=== PATIENT | female | born 1985 | race Caucasian/White ===

== ENCOUNTER 2017-02-23 13:54 | Outpatient (CLI) | payer MEDICAID ==
[~2017-02-23] VITALS: Ht 149.9 cm; Wt 73.5 kg
[~2017-02-23 13:54] MED LIST: BENZ1LOZ52 MM; SODI126M NASAL
[2017-02-23 14:08] VITALS: Ht 149.9 cm; Wt 73.5 kg
[2017-02-23 14:09] VITALS: BP 104/63; PULSE 82; RESP 20
[2017-02-23] MEDS ORDERED: FERR325C PO (14:12)
[2017-02-23] MEDS ORDERED: PRENAT PO (14:12)
--- NOTE | 2017-02-23 14:23 | RADRPT ---
PROCEDURE: US OB biophysical profile. CLINICAL INDICATION: Contractions TECHNIQUE: Multiple sonographic images of the pelvis were obtained. The images were reviewed on a PACS workstation. COMPARISON: No prior studies are available for comparison. FINDINGS: There is a single viable intrauterine gestation. Cardiac activity is present with 131 beats per min jeanette. There is a vertex presentation. The placenta is posterior. There is no evidence of placental abruption. There is a normal amount of amniotic fluid with an ANGELICA = 11.5 cm. Biophysical profile: movement 2/2 tone 2/2. breathing 2/2 ANGELICA 2/2 Total 04/26 RPTAT: AA . IMPRESSION: Normal biophysical profile. Physician Mariluz Date Time Electronically viewed and signed by Physician Mariluz on 02/23/2017 14:22 /
[2017-02-23 14:50] LABS: ADD UMIC YES; URINE BILIRUBIN (Dip) NEGATIVE (NEGATIVE); URINE BLOOD (Dip) NEGATIVE (NEGATIVE); URINE COLOR LT. YELLOW (YELLOW); URINE GLUCOSE (Dip) NEGATIVE (NEGATIVE); URINE KETONES (Dip) NEGATIVE (NEGATIVE); URINE LEUKOCYTE ESTERASE (Dip) 1+ (NEGATIVE); URINE NITRITE (Dip) NEGATIVE (NEGATIVE); URINE TOTAL PROTEIN (Dip) NEGATIVE (NEGATIVE); URINE UROBILINOGEN (Dip) 1.0 E.U./dL (0.1-1.0)
[2017-02-23 15:09] LABS: SQUAMOUS EPITHELIAL CELL,UR FEW; URINE RBCS NONE SEEN /HPF (0)
[2017-02-23] MEDS ORDERED: LACTATED RINGER'S 1,000 ML IV SCH (16:05)
[2017-02-23] MEDS ORDERED: TERBUTALINE 1 MG/ML INJ SC PRN (16:30)
[2017-02-23 16:58] LABS: ADD SCAN DIFF NO
[2017-02-23 16:59] LABS: BASOPHILS % 0.2 % (0.0-2.0); EOSINOPHILS # 0.1 10^3/ul (0.0-0.5); EOSINOPHILS % 1.1 % (0.0-7.0); HEMATOCRIT 33.8 % (37.0-47.0); HEMOGLOBIN 11.1 g/dl (12.0-16.0); LYMPHOCYTES % 16.4 % (15.0-51.0); MEAN CORPUSCULAR HEMOGLOBIN 29.4 pg (29.0-33.0); MEAN CORPUSCULAR HGB CONC 32.8 g/dl (32.0-37.0); MEAN CORPUSCULAR VOLUME 89.4 fl (82.0-101.0); MEAN PLATELET VOLUME 9.3 fl (7.4-10.4); MONOCYTE # 0.6 10^3/ul (0.3-0.9); MONOCYTES % 4.6 % (0.0-11.0); NEUTROPHIL # 9.4 10^3/ul (1.6-7.5); NEUTROPHILS % 76.9 % (39.0-77.0); PLATELET COUNT 300 10^3/UL (140-415); RED BLOOD COUNT 3.78 10^6/ul (4.20-5.40); RED CELL DISTRIBUTION WIDTH 14.2 % (11.5-14.5); WHITE BLOOD COUNT 12.2 10^3/ul (4.8-10.8)
--- NOTE | 2017-02-23 18:30 | QN ---
Documentation Comment 31 y/o female hat 34 weeks c/o uc started today on EFM UC seen q 3-4 min Cx: closed after IV hydration and SQ terbutaline UCs subsided Will D/C on bed + pelvic rest ANGEL GONZALEZ MD Feb 23, 2017 18:30
[2017-02-23] MEDS ORDERED: BETAMET NA PHOS/AC(6 MG/ML) 5ML INJ IM ONE (19:00)
--- NOTE | 2017-02-24 21:15 | QN ---
Documentation Comment 31 y. at 35w6d here for 2nd dose of bethamethasone ,she was here for PTL with uc q3-4min apart yseterday.which was resolved after IV hydration and terbutaline inj' and ist dose of betemethasone given on 02/23/17 EFM revealed 2-3/hr insignificant uc with mod accelerations advise to be f/u in her OB on tuesday02/28/17 for care d/s home with routine labor instructions RTH prn LUISA RIGGINS MD Feb 24, 2017 21:15
== END 2017-02-23 18:50 | disposition home or self-care (01) ==
LOC: OBT 13:54 → L-D 13:54 → OBT 18:50
PROVIDERS: ATTEND Obstetrics & Gynecology
DX: O60.03 Preterm labor without delivery, third trimester (principal); O62.9 Abnormality of forces of labor, unspecified; Z3A.35 35 weeks gestation of pregnancy
CPT/HCPCS: 36415; 76818; 81001; 85025; 96360; 96361; 96372; J0702; J3105; J7120; Z7500; G0463

== ENCOUNTER 2017-02-24 18:38 | Outpatient (CLI) | payer MEDICAID ==
[~2017-02-24] VITALS: Ht 149.9 cm; Wt 75.2 kg
[~2017-02-24 18:38] MED LIST changes: -BENZ1LOZ52 MM; +FERR325C PO; +PRENAT PO; -SODI126M NASAL
[2017-02-24 19:02] VITALS: BP 114/64; PULSE 90; Ht 149.9 cm; Wt 75.2 kg
[2017-02-24] MEDS ORDERED: BETAMET NA PHOS/AC(6 MG/ML) 5ML INJ IM ONE (19:30)
--- NOTE | 2017-02-24 23:41 | TRIAGE ---
OB Triage Datetime Report Generated by CPN: 02/24/2017 23:41 Datetime: 02/24/2017 20:38 Stage of : OB Triage Labor Evaluation Frequency: 0 Monitor Mode: External Resting Tone [place]: Relaxed Heart Rate FHR Baseline Rate: 120 Monitor Mode: External US FHR Baseline Changes: No Baseline Change Variability: Moderate 6-25 bpm Accelerations: 15X15 Decelerations: None Category: Category I Datetime: 02/24/2017 20:00 Stage of : OB Triage Labor Evaluation Frequency: X3 Monitor Mode: External Duration (sec)2399: 50-110 Quality: Mild Resting Tone [place]: Relaxed Heart Rate FHR Baseline Rate: 120 Monitor Mode: External US FHR Baseline Changes: No Baseline Change Variability: Moderate 6-25 bpm Accelerations: 15X15 Decelerations: None Category: Category I Datetime: 02/24/2017 18:58 Stage of : OB Triage Assessment Type: Triage Maternal Assessment Level of Consciousness: Fully Conscious DTR's/Clonus: DTRs 2+; No Clonus Headache: Denies Blurred Vision: No Respiratory Effort: Unlabored; Regular Rhythm; Equal Expansion Breath Sounds, Left: Clear and Equal Breath Sounds, Right: Clear and Equal Nausea/Vomiting: Denies RUQ Epigastric Pain: Denies Facial Edema: None Temperature Route: Axillary Fall Risk Assessment History of Falling: (0) No Secondary Diagnosis: (0) No Ambulatory Aid: (0) Bedrest/Nurse Assist IV Therapy: (0) No Gait: (0) Normal/Bedrest/Immobile Mental Status: (0) Oriented to Own Ability Fall Score: 0 Fall Risk Score Definition: No Risk: No action required Labor Evaluation Frequency: X1 Monitor Mode: External Duration (sec)2399: 70 Quality: Mild Resting Tone [place]: Relaxed Heart Rate FHR Baseline Rate: 125 Monitor Mode: External US Variability: Moderate 6-25 bpm Accelerations: 10X10 Decelerations: None Category: Category I Pain Assessment Pain Scale: 7 Pain Presence: Intermittent Pain Type: Pressure; Ache Pain Location: Back Pain Goal: 3 Pain Relief Measures: Comfort Measures Datetime: 02/24/2017 18:57 Time of Arrival: 02/17/2017 18:35 EGA: 34.6 Arrived By: Ambulatory Arrived From: Home Chief Complaint: 2ND BETAMETASONE INJECTION, STATES SCANT BROWN DISCHARGE. DENIES LEAKING OF FLUID , STATES POSS UC'S Movement: Present Contractions: Occasional Rupture of Membranes: Denies Vaginal Bleeding: Scant Vaginal Discharge: Present Recent Sexual Intercouse: Denies Abdominal Trauma: Not Applicable Patient Complaints: Back Pain Time Provider Notified: 02/24/2017 20:15 Initial Plan: VS, NST, BETAMETHASONE #2 Datetime: 02/23/2017 18:42 Labor Evaluation Frequency: X3 IN THE LAST HOUR Monitor Mode: External Quality: Moderate Pattern: Normal: <= 5 Contractions in 10 Minutes Resting Tone [place]: Relaxed Datetime: 02/23/2017 17:30 Labor Evaluation Frequency: 0 Monitor Mode: External Duration (sec)2399: 0 Pattern: Normal: <= 5 Contractions in 10 Minutes Resting Tone [place]: Relaxed Contraction Comments: PT DENIES UC'S Pain Assessment Pain Scale: 3 Pain Presence: Intermittent Pain Type: Cramping Pain Location: Abdomen; Back Pain Goal: 2 Pain Assessment Comments: PT REPORTS DECREASED PAIN Datetime: 02/23/2017 16:53 Comments: LOSS OF CONTACT Datetime: 02/23/2017 16:49 Comments: LOSS OF CONTACT NOTED AT THIS TIME Datetime: 02/23/2017 16:42 Labor Evaluation Frequency: IRREG Monitor Mode: External Duration (sec)2399: 50-80 Quality: Moderate Pattern: Normal: <= 5 Contractions in 10 Minutes Resting Tone [place]: Relaxed Heart Rate FHR Baseline Rate: 145 Monitor Mode: External US Variability: Moderate 6-25 bpm Accelerations: 15X15 Decelerations: None Category: Category I Datetime: 02/23/2017 15:24 Labor Evaluation Frequency: 3-5 Monitor Mode: External Duration (sec)2399: 50-80 Quality: Moderate Pattern: Normal: <= 5 Contractions in 10 Minutes Resting Tone [place]: Relaxed Heart Rate FHR Baseline Rate: 145 Monitor Mode: External US Variability: Moderate 6-25 bpm Accelerations: 15X15 Decelerations: None Category: Category I Datetime: 02/23/2017 14:56 Labor Evaluation Frequency: IRREG Monitor Mode: External Duration (sec)2399: 50-80 Quality: Strong Pattern: Normal: <= 5 Contractions in 10 Minutes Resting Tone [place]: Relaxed Heart Rate FHR Baseline Rate: 135 Monitor Mode: External US Variability: Moderate 6-25 bpm Accelerations: 15X15 Decelerations: None Category: Category I Datetime: 02/23/2017 14:00 EGA: 35.5 Datetime: 02/23/2017 13:50 Time of Arrival: 02/23/2017 13:50 Arrived By: Ambulatory Chief Complaint: BACK PAIN/ ABDOMINAL PAIN (Annotations: Data stored by CPN on behalf of user) Movement: Present Contractions: Irregular Rupture of Membranes: Denies Vaginal Bleeding: None Vaginal Discharge: Denies Recent Sexual Intercouse: Denies Abdominal Trauma: Not Applicable Patient Complaints: Contractions; Cramping; Headache; Dizziness Time Provider Notified: 02/23/2017 16:00 Provider Notified: XI Initial Plan: TERB, SVE, BPP, IV HYDRATIONS (Annotations: Data stored by N on behalf of user)
== END 2017-02-24 20:49 | disposition home or self-care (01) ==
LOC: OBT 18:38 → L-D 18:39 → OBT 20:49
PROVIDERS: ATTEND Obstetrics & Gynecology
DX: O26.893 Other specified pregnancy related conditions, third trimester (principal); M54.9 Dorsalgia, unspecified; R10.9 Unspecified abdominal pain; Z3A.34 34 weeks gestation of pregnancy
CPT/HCPCS: 96372; J0702; Z7500; G0463

== ENCOUNTER 2017-02-28 14:30 | Outpatient (CLI) | payer MEDICAID ==
[~2017-02-28] VITALS: Ht 149.9 cm; Wt 74.5 kg
--- NOTE | 2017-02-28 14:58 | RADRPT ---
PROCEDURE: Obstetrical ultrasound CLINICAL INDICATION: CONTRACTION TECHNIQUE: Multiple sonographic images of the pelvis were obtained. The images were reviewed on a PACS workstation. COMPARISON: None FINDINGS: The cervix is not well visualized. There is a single viable intrauterine gestation. Cardiac activity is present with 139 beats per minute. There is a vertex presentation. The placenta is fundal. There is no evidence for an abruption or placenta previa. There is a subjectively normal amount of amniotic fluid. Measurements were made in order to determine age. The results are as follows (cm): BPD =8.61 HC =30.25 AC =31.42 FL =6.70 Estimated gestational age by ultrasound of approximately 34 weeks, 4 days. The estimated date of delivery by ultrasound is 04/07/2017. Estimated gestational age by LMP of approximately 35 weeks, 0 days. The estimated date of delivery by LMP is 04/04/2017. EFW = 2534 grams (42nd percentile) IMPRESSION: Single viable intrauterine gestation of approximately 34 weeks, 4 days . The estimated date of delivery is 04/07/2017 . Dating by ultrasound is within 3 days of dating by LMP. Cephalic presentation. Estimated weight is in the 42nd percentile. RPTAT: EE Physician Mariluz Date Time Electronically viewed and signed by Physician Mariluz on 02/28/2017 14:58 /
--- NOTE | 2017-02-28 14:59 | RADRPT ---
PROCEDURE: US OB biophysical profile. CLINICAL INDICATION: evaluation TECHNIQUE: Multiple sonographic images of the pelvis were obtained. The images were reviewed on a PACS workstation. COMPARISON: No prior studies are available for comparison. FINDINGS: There is a single viable intrauterine gestation. Cardiac activity is present with 161 beats per min jeanette. There is a vertex presentation. The placenta is fundal. There is no evidence of placental abruption. There is a normal amount of amniotic fluid with an ANGELICA of 12.0 cm. Biophysical profile: movement 2/2 tone 2/2. breathing 2/2 ANGELICA 2/2 Total 04/26 RPTAT: AA . IMPRESSION: Normal biophysical profile. Physician Mariluz Date Time Electronically viewed and signed by Physician Mariluz on 02/28/2017 14:58 /
[2017-02-28 15:07] VITALS: BP 94/65; PULSE 91; RESP 20; Ht 149.9 cm; Wt 74.5 kg
[2017-02-28 16:50] LABS: ADD UMIC YES; URINE BILIRUBIN (Dip) NEGATIVE (NEGATIVE); URINE BLOOD (Dip) NEGATIVE (NEGATIVE); URINE COLOR LT. YELLOW (YELLOW); URINE GLUCOSE (Dip) NEGATIVE (NEGATIVE); URINE KETONES (Dip) NEGATIVE (NEGATIVE); URINE LEUKOCYTE ESTERASE (Dip) TRACE (NEGATIVE); URINE NITRITE (Dip) NEGATIVE (NEGATIVE); URINE TOTAL PROTEIN (Dip) NEGATIVE (NEGATIVE); URINE UROBILINOGEN (Dip) 0.2 E.U./dL (0.1-1.0)
--- NOTE | 2017-02-28 16:50 | QN ---
Documentation Comment 31 y/o female here for C/O passing "gush" of water this AM On U/S: ANGELICA 12 and BPP 04/26 Cx: closed FHTs: R If Rom Plus: negative will Follow in 2 days ANGEL GONZALEZ MD Feb 28, 2017 16:50
[2017-02-28 16:57] LABS: URINE RBCS 0-2 /HPF (0)
--- NOTE | 2017-02-28 18:36 | TRIAGE ---
OB Triage Datetime Report Generated by CPN: 02/28/2017 18:35 Datetime: 02/28/2017 17:25 Time of Arrival: 02/28/2017 14:20 EGA: 35.0 Arrived By: Ambulatory Arrived From: Home Chief Complaint: LEAKING Movement: Present Contractions: Irregular Vaginal Bleeding: None Vaginal Discharge: Denies Recent Sexual Intercouse: Denies Patient Complaints: Cramping; Back Pain Time Provider Notified: 02/28/2017 15:00 Provider Notified: XI Initial Plan: SVE, BPP, ANGELICA , EFW,UA Datetime: 02/24/2017 18:58 Fall Risk Assessment Fall Score: 0 Fall Risk Score Definition: No Risk: No action required Datetime: 02/24/2017 18:57 EGA: 33.3 Provider Notified: XI Datetime: 02/23/2017 14:00 EGA: 34.2
== END 2017-02-28 17:30 | disposition home or self-care (01) ==
LOC: OBT 14:30 → L-D 14:30 → OBT 17:30
PROVIDERS: ATTEND Obstetrics & Gynecology
DX: O26.893 Other specified pregnancy related conditions, third trimester (principal); Z3A.31 31 weeks gestation of pregnancy
CPT/HCPCS: 76815; 76818; 81001; 84112; Z7500; G0463

== ENCOUNTER 2017-03-09 11:37 | Outpatient (CLI) | payer MEDICAID ==
[~2017-03-09] VITALS: Ht 149.9 cm; Wt 73.8 kg
[2017-03-09 12:29] VITALS: Ht 149.9 cm; Wt 73.8 kg
[2017-03-09 12:30] VITALS: BP 103/60; PULSE 75
[2017-03-09 12:53] LABS: ADD SCAN DIFF NO
[2017-03-09 12:55] LABS: BASOPHILS % 0.3 % (0.0-2.0); EOSINOPHILS # 0.1 10^3/ul (0.0-0.5); EOSINOPHILS % 0.8 % (0.0-7.0); HEMATOCRIT 32.2 % (37.0-47.0); LYMPHOCYTES # 1.5 10^3/ul (0.8-2.9); LYMPHOCYTES % 12.8 % (15.0-51.0); MEAN CORPUSCULAR HEMOGLOBIN 29.9 pg (29.0-33.0); MEAN CORPUSCULAR HGB CONC 34.2 g/dl (32.0-37.0); MEAN CORPUSCULAR VOLUME 87.5 fl (82.0-101.0); MONOCYTE # 0.6 10^3/ul (0.3-0.9); MONOCYTES % 5.1 % (0.0-11.0); NEUTROPHIL # 9.5 10^3/ul (1.6-7.5); NEUTROPHILS % 80.1 % (39.0-77.0); PLATELET COUNT 292 10^3/UL (140-415); RED BLOOD COUNT 3.68 10^6/ul (4.20-5.40); RED CELL DISTRIBUTION WIDTH 14.1 % (11.5-14.5); WHITE BLOOD COUNT 11.9 10^3/ul (4.8-10.8)
[2017-03-09 12:58] LABS: ADD UMIC YES; UR ASCORBIC ACID 20 mg/dL (NEGATIVE); UR BILIRUBIN (Dip) NEGATIVE (NEGATIVE); UR BLOOD (Dip) NEGATIVE (NEGATIVE); UR CLARITY SLIGHTLY CLOUDY (CLEAR); UR COLOR YELLOW (YELLOW); UR GLUCOSE (Dip) NEGATIVE (NEGATIVE); UR KETONES (Dip) NEGATIVE (NEGATIVE); UR LEUKOCYTE ESTERASE (Dip) 2+ Leu/ul (NEGATIVE); UR MUCUS FEW /HPF (NONE SEEN); UR NITRITE (Dip) NEGATIVE (NEGATIVE); UR RBC 1 /HPF (0-5); UR SPECIFIC GRAVITY (Dip) 1.014 (1.003-1.030); UR SQUAMOUS EPITHELIAL CELL FEW /HPF (FEW); UR TOTAL PROTEIN (Dip) NEGATIVE (NEGATIVE); UR UROBILINOGEN (Dip) NEGATIVE (NEGATIVE)
--- NOTE | 2017-03-09 13:16 | RADRPT ---
PROCEDURE: Limited OB ultrasound for ANGELICA. CLINICAL INDICATION: Spontaneous rupture of membranes. TECHNIQUE: Sonographic evaluation to assess the amniotic fluid volume was performed. Transabdomin al imaging of the gravid uterus was performed. COMPARISON: OB ultrasound 02/28/2017 FINDINGS: Single live intrauterine with cardiac activity is identified. The heart rate i s 128 bpm. The amniotic -fluid volume equals approximately 10.2 cm, within normal limits. The plac enta is posterior. The lie is cephalic. IMPRESSION: 1. Amniotic fluid volume equals 10.2 cm. RPTAT: KK .Bobby Rich MD, MD Date Time Electronically viewed and signed by .Bobby Rich MD, on 03/09/2017 13:16 .B/
--- NOTE | 2017-03-09 13:55 | PN ---
Triage Information Date/Time 03/09/2017 Weeks of Gestation 36.2 weeks : 3 Para: 2 Diabetes: none Hypertention: none Additional information sent in from clinic for ? SROM and or labor Objective Vital Signs Date Time Temp Pulse Resp B/P Pulse Ox O2 Delivery O2 Flow Rate FiO2 03/09/17 12:30 98.3 75 103/60 Heart Rate: 140's Heart Rate Comments FHTs are reactive Contractions: 6-10 Minutes Apart Exam Cx: closed Results/Medications Result Diagram: 03/09/17 1245 Results 24 hrs Laboratory Tests Test 03/09/17 11:24 03/09/17 12:45 Urine Color YELLOW Urine Clarity SLIGHTLY CLOUDY A Urine pH 6.0 Urine Specific [place] 1.014 Urine Ketones NEGATIVE Urine Nitrite NEGATIVE Urine Bilirubin NEGATIVE Urine Urobilinogen NEGATIVE Urine Leukocyte Esterase 2+ H Urine Microscopic RBC 1 Urine Microscopic WBC 7 H Urine Squamous Epithelial Cells FEW Urine Mucus FEW A Urine Hemoglobin NEGATIVE Urine Glucose NEGATIVE Urine Total Protein NEGATIVE White Blood Count 11.9 H Red Blood Count 3.68 L Hemoglobin 11.0 L Hematocrit 32.2 L Mean Corpuscular Volume 87.5 Mean Corpuscular Hemoglobin 29.9 Mean Corpuscular Hemoglobin Concent 34.2 Red Cell Distribution Width 14.1 Platelet Count 292 Mean Platelet Volume 9.0 Neutrophils % 80.1 H Lymphocytes % 12.8 L Monocytes % 5.1 Eosinophils % 0.8 Basophils % 0.3 Nucleated Red Blood Cells % 0.0 Neutrophils # 9.5 H Lymphocytes # 1.5 Monocytes # 0.6 Eosinophils # 0.1 Basophils # 0.0 Nucleated Red Blood Cells # 0.0 Membranes Rupture NEGATIVE Imaging Results ANGELICA:>10 cm Assessment/Plan labor: SQ terbutaline given SROM ruled out: (NEG ROM PLUS) will place patient on bed + pelvic rest Follow as out patient ANGEL GONZALEZ MD Mar 09, 2017 13:55
[2017-03-09] MEDS ORDERED: TERBUTALINE 1 MG/ML INJ SC ONE (14:00)
== END 2017-03-09 14:30 | disposition home or self-care (01) ==
LOC: OBT 11:37 → L-D 11:38 → OBT 14:22
PROVIDERS: ATTEND Obstetrics & Gynecology
DX: O47.03 False labor before 37 completed weeks of gestation, third trimester (principal); Z3A.36 36 weeks gestation of pregnancy
CPT/HCPCS: 36415; 76815; 81001; 84112; 85025; J3105; Z7500; G0463

== ENCOUNTER 2017-03-20 15:25 | Outpatient (CLI) | payer MEDICAID ==
[~2017-03-20] VITALS: Ht 149.9 cm; Wt 75.4 kg
[2017-03-20 15:40] VITALS: BP 107/57; PULSE 71; RESP 18; Ht 149.9 cm; Wt 75.4 kg
--- NOTE | 2017-03-20 18:14 | PN ---
Triage Information Date/Time 03/20/2017 Weeks of Gestation 37.6 : 3 Para: 2 Diabetes: none Hypertention: none Additional information C/P UC started 10:00 AM Objective Vital Signs Date Time Temp Pulse Resp B/P Pulse Ox O2 Delivery O2 Flow Rate FiO2 03/20/17 15:40 98.1 71 18 107/57 98 Room Air Contractions: 6-10 Minutes Apart Exam long posterior and closed Results/Medications Medications NONE Imaging Results BPP 04/26 Assessment/Plan 37.6 weeks gestation early labor ANGEL GONZALEZ MD Mar 20, 2017 18:14
--- NOTE | 2017-03-20 19:48 | RADRPT ---
PROCEDURE: OB ultrasound for biophysical profile CLINICAL INDICATION: . labor TECHNIQUE: Multiple sonographic images of the pelvis were obtained. Transabdominal view of the gr avid uterus are available for review. The images were reviewed on a PACS workstation. COMPARISON: 03/09/2017 FINDINGS: breathing movement = 2/2 tone = 2/2 motion = 2/2 ANGELICA = 2/2 ANGELICA = 8.4 cm Single live intrauterine with cardiac activity. Heart rate equals 129 bpm. IMPRESSION: 1. Single viable intrauterine gestation. 2. Biophysical profile = 8/8. 3. ANGELICA = 8.4 cm. RPTAT: HLDM .Alex Lovelace MD, MD Date Time Electronically viewed and signed by .Alex Lovelace MD, on 03/20/2017 19:48 .M/
== END 2017-03-20 20:04 | disposition home or self-care (01) ==
LOC: OBT 15:25 → L-D 15:26 → OBT 20:04
PROVIDERS: ATTEND Obstetrics & Gynecology
DX: O62.9 Abnormality of forces of labor, unspecified (principal); Z3A.37 37 weeks gestation of pregnancy
CPT/HCPCS: 76818; Z7500; G0463

== ENCOUNTER 2017-03-26 21:41 | Outpatient (CLI) | payer MEDICAID ==
[~2017-03-26] VITALS: Ht 149.9 cm; Wt 75.2 kg
[2017-03-26 22:23] VITALS: Ht 149.9 cm; Wt 75.2 kg
[2017-03-26 22:24] VITALS: BP 111/63; PULSE 75; RESP 18
--- NOTE | 2017-03-27 01:39 | PN ---
Triage Information Date/Time March 27, 2017 Weeks of Gestation 38w 6d : 3 Para: 2 Diabetes: none Hypertention: none Additional information C/O contractions. No bleeding or leaking. POBHx: x 2, 4 and 6 years ago. PMHx: none. PSHx: Cholecystectomy. NKDA. Objective Vital Signs Date Time Temp Pulse Resp B/P Pulse Ox O2 Delivery O2 Flow Rate FiO2 03/26/17 22:24 98.2 75 18 111/63 Room Air Heart Rate: 120's Heart Rate Comments Accels to the 170's. No decels. UC's q 2 to 7 minutes. Contractions: 6-10 Minutes Apart Exam 40%/FT/-3 After walking x 2 hours, her exam was 1-2 cm only.No other changes. Assessment/Plan IUP at 38w 6d. Prodromal labor. P: Gave pt the option of staying or going home and she opted for home. Labor precautions given. MIA MARIO MD Mar 27, 2017 01:39
== END 2017-03-27 01:41 | disposition home or self-care (01) ==
LOC: OBT 21:41 → L-D 21:42 → OBT 03-27 01:41
PROVIDERS: ATTEND Obstetrics & Gynecology
DX: O62.9 Abnormality of forces of labor, unspecified (principal); Z3A.38 38 weeks gestation of pregnancy
CPT/HCPCS: G0463

== ENCOUNTER 2017-04-01 08:00 | Inpatient (IN) | payer MEDICAID ==
[~2017-04-01] VITALS: Ht 149.9 cm; Wt 75.9 kg
[2017-04-01 08:41] VITALS: Ht 149.9 cm; Wt 75.9 kg
[2017-04-01 08:42] VITALS: BP 105/71; PULSE 85; RESP 16
[2017-04-01] MEDS: LACTATED RINGER'S 1,000 ML IV SCH ×2 (08:44→16:17)
[2017-04-01] MEDS ORDERED: OXYTOCIN 30 UNITS/LR 500 ML IV SCH ×3 (09:00)
[2017-04-01] MEDS ORDERED: OXYTOCIN 30 UNITS/LR 500 ML IV PRN (09:00)
[2017-04-01] MEDS ORDERED: BUTORPHANOL 2 MG INJ IV PRN (09:00)
[2017-04-01] MEDS ORDERED: METHYLERGONOVINE 0.2 MG INJ IM PRN (09:00)
[2017-04-01] MEDS ORDERED: CARBOPROST 250 MCG INJ IM PRN (09:00)
[2017-04-01] MEDS ORDERED: IBUPROFEN 600 MG TAB PO PRN (09:00)
[2017-04-01] MEDS ORDERED: LIDOCAINE 1% (MPF) 30 ML INJ INJ PRN (09:00)
[2017-04-01] MEDS ORDERED: MISOPROSTOL 200 MCG TAB PR PRN (09:00)
[2017-04-01] MEDS ORDERED: MINERAL OIL LIGHT 10 ML VIAL TOP ONE (09:00)
[2017-04-01 10:58] LABS: ADD SCAN DIFF NO
[2017-04-01 11:08] LABS: BASOPHILS % 0.4 % (0.0-2.0); EOSINOPHILS # 0.1 10^3/ul (0.0-0.5); HEMATOCRIT 35.7 % (37.0-47.0); LYMPHOCYTES # 1.8 10^3/ul (0.8-2.9); LYMPHOCYTES % 16.6 % (15.0-51.0); MEAN CORPUSCULAR HEMOGLOBIN 29.4 pg (29.0-33.0); MEAN CORPUSCULAR HGB CONC 33.6 g/dl (32.0-37.0); MEAN CORPUSCULAR VOLUME 87.5 fl (82.0-101.0); MEAN PLATELET VOLUME 9.6 fl (7.4-10.4); MONOCYTE # 0.6 10^3/ul (0.3-0.9); MONOCYTES % 6.1 % (0.0-11.0); NEUTROPHIL # 7.9 10^3/ul (1.6-7.5); PLATELET COUNT 336 10^3/UL (140-415); RED BLOOD COUNT 4.08 10^6/ul (4.20-5.40); RED CELL DISTRIBUTION WIDTH 14.3 % (11.5-14.5); WHITE BLOOD COUNT 10.6 10^3/ul (4.8-10.8)
[2017-04-01 12:03] LABS: INR 0.94; PROTIME 12.6 Sec (12.2-14.2)
[2017-04-01 12:04] LABS: PARTIAL THROMBOPLASTIN TIME 30.9 Sec (25.0-35.0)
[2017-04-01] MEDS ORDERED: LACTATED RINGER'S 1,000 ML IV PRN (15:00)
--- NOTE | 2017-04-01 20:38 | HP ---
Date/Time of Note Date/Time of Note DATE: 04/01/17 TIME: 20:35 OB - History Hx of Present Free Text/Dictation Admitted for elective induction of labor at 39+ weeks Last Menstrual Period: Jun 17, 2016 Estimated Due Date: Apr 04, 2017 : 3 Para: 2 Care: Good Care Ultrasounds: Normal mid trimester US Obstetrical Complications: Other Medical Complications: None Past Family/Social History * Past Medical, Surgical, Family and Obstetric Histories reviewed from chart. Blood Type: A+ Rubella: immune RPR/VDRL: Negative GBS Status: Negative HBsAG: Negative OB Admission Exam Vital Signs Vital Signs Vital Signs Date Time Temp Pulse Resp B/P Pulse Ox O2 Delivery O2 Flow Rate FiO2 04/01/17 08:42 98.1 85 16 105/71 Room Air Physical Exam HEENT: WNL Heart: Rhythm Normal Lungs: Clear, Equal Abdomen: WNL Extremities: Normal Reflexes: Normal Cervical Dilatation: Fingertip Effacement: 0% Station: -3 Membranes: Intact Heart Rate: 130's Accelerations: Accelerations Present Decelerations: No Decelerations Varibility: Marked Contractions on Admission: None Last 72 hours Lab Results CBC & BMP 04/01/17 09:00 OB Assessment/Plan Reason for admission: induction of labor Other Assessment: term gestation Induction Method: per Misoprostol Protocol ANGEL GONZALEZ MD Apr 01, 2017 20:37
[2017-04-02] MEDS: LACTATED RINGER'S 1,000 ML IV SCH ×3 (00:16→16:33)
[2017-04-02] MEDS ORDERED: OXYTOCIN 30 UNITS/LR 500 ML IV SCH (05:16)
[2017-04-02] MEDS: LACTATED RINGER'S 1,000 ML IV* SCH ×2 (05:16→13:16)
--- NOTE | 2017-04-02 05:16 | LDN ---
Date/Time of Note Date/Time of Note DATE: 04/02/17 TIME: 05:15 Delivery Summary Weeks of Gestation 40 Placenta Delivered: Spontaneously Meconium: none Episiotomy: No Laceration repair: none Anesthesia type: None Estimated blood loss: 100 Sponge & Needle done & correct: Yes All needle counts correct: Yes Any foreign bodies felt in the: No Problems: Delivery Information Suctioning Nose & mouth suctioned at priscilla: Yes Umbilical Cord Cord presentations: no nuchal cord Cord Blood was obtained: Yes ELISABET CHAVARRIA MD Apr 02, 2017 05:16
[2017-04-02] MEDS ORDERED: BENZOCAINE 20% 56 ML SPRAY TOP PRN (05:30)
[2017-04-02] MEDS ORDERED: METHYLERGONOVINE 0.2 MG INJ IM PRN (05:30)
[2017-04-02] MEDS ORDERED: DIBUCAINE 1% 30 GM OINT PR PRN (05:30)
[2017-04-02] MEDS ORDERED: WITCH HAZEL/GLYCERIN PAD PR PRN (05:30)
[2017-04-02] MEDS ORDERED: LANOLIN 7 GM TUBE TOP PRN (05:30)
[2017-04-02] MEDS ORDERED: ACETAMINOPHEN 325 MG TAB PO PRN (05:30)
[2017-04-02] MEDS ORDERED: CARBOPROST 250 MCG INJ IM PRN (05:30)
[2017-04-02] MEDS ORDERED: MISOPROSTOL 200 MCG TAB PR PRN (05:30)
[2017-04-02] MEDS ORDERED: OXYTOCIN 30 UNITS/LR 500 ML IV PRN (05:30)
[2017-04-02] MEDS: IBUPROFEN 600 MG TAB PO SCH ×4 (08:10→23:51)
[2017-04-02 08:20] VITALS: BP 109/59; PULSE 68; RESP 18
[2017-04-02 08:50] VITALS: BP 120/75; PULSE 80; RESP 18
[2017-04-02] MEDS: SENNA/DOCUSATE NA (8.6MG/50MG) TAB PO SCH ×2 (09:34→20:34)
[2017-04-02 12:00] VITALS: BP 104/63; PULSE 67; RESP 18
[2017-04-02 15:38] VITALS: BP 107/59; PULSE 70; RESP 19
[2017-04-02 19:50] VITALS: BP 109/68; PULSE 66; RESP 18
[2017-04-02 23:50] VITALS: BP 137/73; PULSE 66; RESP 18
[2017-04-03 03:45] VITALS: BP 102/70; PULSE 70; RESP 18
[2017-04-03] MEDS: IBUPROFEN 600 MG TAB PO SCH ×4 (05:39→23:40)
[2017-04-03] MEDS: ACETAMINOPHEN 325 MG TAB PO PRN ×2 (06:37→16:15)
[2017-04-03 08:21] VITALS: BP 92/70; PULSE 59; RESP 18
[2017-04-03 08:28] LABS: ADD SCAN DIFF NO
[2017-04-03 08:43] LABS: BASOPHILS % 0.4 % (0.0-2.0); EOSINOPHILS # 0.1 10^3/ul (0.0-0.5); EOSINOPHILS % 1.3 % (0.0-7.0); HEMATOCRIT 30.3 % (37.0-47.0); LYMPHOCYTES # 1.9 10^3/ul (0.8-2.9); LYMPHOCYTES % 17.9 % (15.0-51.0); MEAN CORPUSCULAR HEMOGLOBIN 29.1 pg (29.0-33.0); MEAN CORPUSCULAR VOLUME 88.1 fl (82.0-101.0); MEAN PLATELET VOLUME 9.7 fl (7.4-10.4); MONOCYTE # 0.8 10^3/ul (0.3-0.9); MONOCYTES % 8.1 % (0.0-11.0); NEUTROPHIL # 7.4 10^3/ul (1.6-7.5); NEUTROPHILS % 71.6 % (39.0-77.0); PLATELET COUNT 277 10^3/UL (140-415); RED BLOOD COUNT 3.44 10^6/ul (4.20-5.40); RED CELL DISTRIBUTION WIDTH 14.6 % (11.5-14.5); WHITE BLOOD COUNT 10.3 10^3/ul (4.8-10.8)
[2017-04-03] MEDS: SENNA/DOCUSATE NA (8.6MG/50MG) TAB PO SCH ×2 (11:10→23:40)
[2017-04-03 16:00] VITALS: BP 106/69; PULSE 66; RESP 16
--- NOTE | 2017-04-03 16:00 | DS ---
Date/Time of Note Date/Time of Note Home next day DATE: 04/03/17 TIME: 15:59 Obstetrical Discharge Record Final Diagnosis Final Diagnosis: Term delivered Other Final Diagnosis Status post vaginal delivery Vaginal Delivery Obstetrical Delivery: Spontaneous Complications Augmentation: Yes Induction: Yes Condition on Discharge Physical Assessment Last Vitals: See nurse's notes Voiding: Yes Bowel Movement: Yes Breast: Soft, non-tender, Filling Fundus: Firm Abdomen and Incision: Abdomen is soft bowel sounds positive Fundus at umbilicus Episiotomy: Not applicable Calf Tenderness: No Patient Condition: Good ANGEL GONZALEZ MD Apr 03, 2017 16:00
--- NOTE | 2017-04-03 16:01 | PD.PPDC ---
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
[2017-04-03] MEDS ORDERED: IBUP-1542 PO (16:02)
[2017-04-03 20:00] VITALS: BP 112/63; PULSE 70; RESP 20
[2017-04-04 04:00] VITALS: BP 112/69; PULSE 69; RESP 20
[2017-04-04] MEDS: IBUPROFEN 600 MG TAB PO SCH ×2 (05:41→12:30)
[2017-04-04 08:00] VITALS: BP 107/68; PULSE 62; RESP 16
[2017-04-04] MEDS: SENNA/DOCUSATE NA (8.6MG/50MG) TAB PO SCH (09:00)
== END 2017-04-04 13:55 | disposition home or self-care (01) | DRG 775 ==
LOC: L-D 08:23 → PP1 04-02 08:32
PROVIDERS: ADMIT Obstetrics & Gynecology; ATTEND Obstetrics & Gynecology
PROC: 10E0XZZ Delivery of Products of Conception, External Approach (ICD-10-PCS; principal; 2017-04-02)
DX: O48.0 Post-term pregnancy (principal); Z37.0 Single live birth; Z3A.40 40 weeks gestation of pregnancy
CPT/HCPCS: 85025; 85610; 85730; 86592; 86900; 86901; 87340; 99464; J0595; J2590; J7120

== ENCOUNTER 2017-10-25 11:27 | Emergency (ER) | END 2017-10-25 12:30 | disposition home or self-care (01) ==

== ENCOUNTER 2018-05-14 13:12 | Emergency (ER) | END 2018-05-14 17:01 | disposition home or self-care (01) ==

== ENCOUNTER 2018-07-24 15:33 | Emergency (ER) | END 2018-07-24 17:10 | disposition home or self-care (01) ==

== ENCOUNTER 2019-02-02 12:22 | Emergency (ER) | payer MEDICAID ==
[~2019-02-02] VITALS: Ht 167.6 cm; Wt 69.0 kg
[~2019-02-02 12:22] MED LIST changes: +ACET500C5 PO; +ALBU18HF INHALATION; +AZIT250T PO; +BISM-34 PO; +CETI10CA PO; +D-ME473S2 PO; +DOXY100T20 PO; +FLUT9.9S NASAL; +IBUP-1542 PO; +IBUP800T48 PO; +ONDA4TAB14 PO; +ONDA4TAB8 PO
[2019-02-02 12:46] VITALS: BP 109/70; PULSE 74; RESP 20; Ht 167.6 cm; Wt 69.0 kg
--- NOTE | 2019-02-02 13:34 | ERD ---
ER Documentation Chief Complaint Chief Complaint Complains of a cough, colds and flu-like symptoms x 3 days HPI 33-year-old female is here with 3 days of cough congestion runny nose and sore throat. No fever. No nausea or vomiting.. Children are here with similar symptoms. ROS All systems reviewed and are negative except as per history of present illness. Medications Home Meds Active Scripts Ibuprofen* (Motrin*) 800 Mg Tab, 800 MG PO TID for 5 Days, #15 TAB Prov:SHY SONG MD 10/23/18 Bismuth Subsalicylate* (Bismuth Subsalicylate*) 262 Mg/15 Ml Oral.susp, 15 ML PO Q6 PRN for diarrh, #1 BOTTLE Prov:ANASTASIYA UMANZOR PA-C 07/24/18 Fluticasone Propionate (Flonase Allergy Relief) 9.9 Ml [place].susp, 1 SPRAY NASAL BID, #1 BOTTLE TO EACH NOSTRIL Prov:ANASTASIYA UMANZOR PA-C 07/24/18 Ibuprofen* (Motrin*) 600 Mg Tab, 600 MG PO Q6, #30 TAB Prov:ANASTASIYA UMANZOR PA-C 07/24/18 Ondansetron (Ondansetron Odt) 4 Mg Tab.rapdis, 4 MG PO Q6H PRN for NAUSEA AND/OR VOMITING, #10 TAB Prov:ANASTASIYA UMANZOR PA-C 07/24/18 Doxycycline Hyclate* (Doxycycline Hyclate*) 100 Mg Tablet.dr, 100 MG PO BID for 10 Days, TAB Prov:RUBY SINGH PA-C 05/14/18 Ondansetron Hcl* (Zofran*) 4 Mg Tablet, 4 MG PO Q6H for NAUSEA AND/OR VOMITING, #30 TAB Prov:VIANNEY DAVIDSON PA-C 10/25/17 Albuterol Sulfate* (Ventolin HFA*) 18 Gm Hfa.aer.ad, 2 PUFF INHALATION Q6H, #1 INHALER Prov:VIANNEY DAVIDSON PA-C 10/25/17 Acetaminophen* (Tylophen*) 500 Mg Capsule, 1 CAP PO Q6H PRN for PAIN AND OR ELEVATED TEMP, #30 CAP Prov:VIANNEY DAVIDSONC 10/25/17 Ibuprofen* (Motrin*) 600 Mg Tab, 600 MG PO Q6, #30 TAB Prov:VIANNEY DAVIDSONC 10/25/17 Dextromethorphan Hb-Promethazine Hcl* (Promethazine DM* Syrup) 473 Ml Syrup, 5 ML PO Q6 PRN for COUGH for 5 Days, ML Prov:VIANNEY DAVIDSONC 10/25/17 Fluticasone Propionate (Flonase Allergy Relief) 9.9 Ml [place].susp, 2 SPRAY NASAL DAILY, #1 BOTTLE TO EACH NOSTRIL Prov:VIANNEY DAVIDSONC 10/25/17 Cetirizine Hcl* (Zyrtec*) 10 Mg Capsule, 10 MG PO DAILY, #14 TAB.CHEW Prov:VIANNEY DAVIDSON PA-C 10/25/17 Azithromycin* (Zithromax*) 250 Mg Tablet, 250 MG PO .ZPACK DIRECTED, #6 TAB TAKE 500 MG (2 TABS) THE FIRST DAY THEN 250 MG (1 TAB) DAYS 2-5 Prov:VIANNEY DAVIDSONC 10/25/17 Ibuprofen* (Ibuprofen*) 600 Mg Tablet, 600 MG PO Q6, #30 TAB 0 Refills Prov:ANGEL GONZALEZ MD 04/03/17 Reported Medications Ferrous Sulfate (Iron) 325 Mg Capsule.er, 325 MG PO BID WITH MEALS, CAP 02/23/17 Multivit/Min/Fol Ac/Iron/Pren* ( S*) 1 Tab Tab, 1 TAB PO DAILY, TAB 02/23/17 Allergies Allergies: Coded Allergies: Latex, Natural Rubber (Verified Allergy, Unknown, RASH, 03/26/17) PMhx/Soc History of Surgery: No Anesthesia Reaction: No Hx Neurological Disorder: No Hx Respiratory Disorders: No Hx Cardiac Disorders: No Hx Psychiatric Problems: No Hx Miscellaneous Medical Probl: No Hx Alcohol Use: No Hx Substance Use: No Hx Tobacco Use: No FmHx Family History: No diabetes Physical Exam Vitals Vital Signs Date Temp Pulse Resp B/P (MAP) Pulse Ox O2 O2 Flow FiO2 Time Delivery Rate 02/02/19 98.2 74 20 109/70 97 12:46 (83) Physical Exam Const: No acute distress Head: Atraumatic Eyes: Normal Conjunctiva ENT: Normal External Ears, Nose and Mouth. Neck: Full range of motion. No meningismus. Resp: Clear to auscultation bilaterally Cardio: Regular rate and rhythm, no murmurs Procedures/MDM This is an otherwise healthy, well appearing patient presenting with uncomplicated URI symptoms, likely viral in etiology. Patient is non-toxic and well hydrated. I have low suspicion for pneumonia or significant bacterial disease. Patient will be treated with outpatient supportive care; no indications for antibiotics at this time. Discharge instructions have included return precautions and close follow up with PMD. Medical Decision Making: Clinical Impression: Acute Viral Upper Respiratory Tract Infection, initial encounter Departure Diagnosis: Primary Impression: Upper respiratory infection Condition: Stable JUANCHO BRAY PA-C February 02, 2019 13:34
== END 2019-02-02 13:59 | disposition home or self-care (01) ==
LOC: FTE 12:22
DX: J06.9 Acute upper respiratory infection, unspecified (principal); Z91.040 Latex allergy status
CPT/HCPCS: 99282